=== PATIENT | male | born 1965 | race Hispanic/Latino ===

== ENCOUNTER → 2017-05-01 | Outpatient (CLI) | payer OTHER ==
[~2017-05-01] MED LIST: ALLOPURINOL300 MG PO; ALPRAZOLAM0.25 MG PO; AMBIEN10 MG PO; BENTYL10 MG PO; BUSPIRONE HCL5 MG PO; CARAFATE1 GM/10 ML PO; CELEBREX PO; CYMBALTA30 MG PO; DEXILANT60 MG PO; FOLIC ACID1 MG PO; HYDROCODONE PO; LAMISIL250 MG PO; LASIX20 MG PO; LEVEMIR100 UNIT/1 SC; LOSARTAN POTASS25 MG PO; LYRICA50 MG PO; PERIOSTAT PO; SORIATANE25 MG PO; SUCRALFATE1 GM PO; TRIAMCINOLONE; [UNRECOGNIZED DRUG - CODE]
--- NOTE | 2017-05-01 22:41 | Diagnostic Imaging Report ---
EXAM: CHEST 2 VIEWS, PA and lateral INDICATION: Positive skin test COMPARISON: PA and lateral view of the chest May 05, 2016 FINDINGS: LINES/TUBES: None LUNGS: No consolidations or edema. PLEURA: No effusions or pneumothorax. HEART AND MEDIASTINUM: Normal size and contour. BONES AND SOFT TISSUES: No acute findings. IMPRESSION: No acute thoracic abnormality. Signed by: Dr. Amairani Jefferson M.D. on 05/01/2017 10:37 PM
== END ==
LOC: RAD 16:44
PROVIDERS: ATTEND Student in an Organized Health Care Education/Training Program
DX: R76.11 Nonspecific reaction to tuberculin skin test without active tuberculosis (principal); L40.59 Other psoriatic arthropathy; Z79.899 Other long term (current) drug therapy
CPT/HCPCS: 71046

== ENCOUNTER → 2018-05-03 | Outpatient (CLI) | payer OTHER ==
--- NOTE | 2018-05-03 16:53 | Diagnostic Imaging Report ---
EXAMINATION: PA and lateral views of the chest. COMPARISON: 05/01/2017 CLINICAL HISTORY: Positive PPD DISCUSSION: Lines/tubes: None. Lungs: The lungs are well inflated and clear. There is no evidence of pneumonia or pulmonary edema. Pleura: There is no pleural effusion or pneumothorax. Heart and mediastinum: The cardiomediastinal silhouette is normal. Bones and soft tissues: No acute bony abnormalities. Degenerative changes in the thoracic spine unchanged anterior compression deformity of an upper lumbar vertebral body relative to 05/01/2017. IMPRESSION: No acute cardiopulmonary abnormalities. Signed by: Dr. Karlos Reyes M.D. on 05/03/2018 4:49 PM
== END ==
LOC: RAD 16:00
PROVIDERS: ATTEND Internal Medicine Rheumatology
DX: R76.11 Nonspecific reaction to tuberculin skin test without active tuberculosis (principal); L40.59 Other psoriatic arthropathy; Z79.899 Other long term (current) drug therapy
CPT/HCPCS: 71046

== ENCOUNTER → 2019-07-11 | Outpatient (CLI) | payer OTHER ==
--- NOTE | 2019-07-11 09:58 | Diagnostic Imaging Report ---
EXAM: CHEST 2 VIEWS DATE: 07/11/2019 9:19 AM INDICATION: +PPD COMPARISON: 05/03/2018 FINDINGS: The trachea is midline. The lungs are symmetrically expanded without evidence for large focal consolidation, pneumothorax, or significant pleural effusion. The cardiomediastinal silhouette and pulmonary vasculature are within normal limits. No acute osseous abnormality is identified. The surrounding soft tissues are unremarkable. IMPRESSION: No acute cardiopulmonary process identified. Signed by: Dr. Logan Haile MD on 07/11/2019 9:54 AM
== END ==
LOC: RAD 09:12
PROVIDERS: ATTEND Internal Medicine Rheumatology
DX: R76.11 Nonspecific reaction to tuberculin skin test without active tuberculosis (principal); L40.59 Other psoriatic arthropathy
CPT/HCPCS: 71046

== ENCOUNTER → 2020-07-12 | Outpatient (CLI) | payer BC | LOC: RAD 12:55 | PROVIDERS: ATTEND Internal Medicine Rheumatology | DX: Z79.899 Other long term (current) drug therapy (principal); Z11.1 Encounter for screening for respiratory tuberculosis; D89.9 Disorder involving the immune mechanism, unspecified; R76.11 Nonspecific reaction to tuberculin skin test without active tuberculosis | CPT/HCPCS: 71046 ==

== ENCOUNTER 2024-01-30 09:20 | Emergency (ER) | payer SELFPAY ==
[~2024-01-30] VITALS: Ht 165.1 cm; Wt 127.0 kg
[2024-01-30] MEDS: TETANUS/DIPHTHERIA TOX ADULT 0.5 ML SYR IM ONE (09:48)
[2024-01-30] MEDS: LIDOCAINE HCL 1% LOCAL INJ 20 ML VIAL INJ ONE (09:49)
[2024-01-30] MEDS ORDERED: BACITRACIN ZINC 0.9GM TP ONE (10:16)
[2024-01-30] MEDS ORDERED: CIPRO500 MG PO (10:19)
[2024-01-30 10:31] VITALS: PULSE 74; RESP 16; TEMP 98.4; O2SAT 98
== END 2024-01-30 10:35 | disposition home or self-care (01) ==
LOC: ER 09:32
DX: S01.311A Laceration without foreign body of right ear, initial encounter (principal); W22.09XA Striking against other stationary object, initial encounter; Y92.89 Other specified places as the place of occurrence of the external cause; M06.9 Rheumatoid arthritis, unspecified; L40.9 Psoriasis, unspecified
CPT/HCPCS: 12013; 90471; 90714; 99283; J2003

== ENCOUNTER 2024-03-23 13:36 | Emergency (ER) | payer SELFPAY ==
[~2024-03-23] VITALS: Ht 165.1 cm; Wt 127.0 kg
[~2024-03-23 13:36] MED LIST changes: +CIPRO500 MG PO
[2024-03-23 14:51] VITALS: PULSE 92; RESP 18; TEMP 98.9; O2SAT 97
[2024-03-23] MEDS ORDERED: IBUPROFEN 600 MG TAB ONE (15:04)
[2024-03-23] MEDS: IBUPROFEN 600 MG TAB PO STA (15:07)
== END 2024-03-23 16:38 | disposition home or self-care (01) ==
LOC: ER 14:49
DX: M25.512 Pain in left shoulder (principal); L40.9 Psoriasis, unspecified; M06.9 Rheumatoid arthritis, unspecified
CPT/HCPCS: 99283

== ENCOUNTER 2024-04-12 11:02 | Inpatient (IN) | payer SELFPAY ==
[~2024-04-12] VITALS: Ht 165.1 cm; Wt 81.8 kg
[2024-04-12 11:14] VITALS: TEMP 97.5
[2024-04-12] MEDS ORDERED: SODIUM CHLORIDE FLUSH 10 ML SYR IV PRN (11:30)
[2024-04-12 12:22] LABS: BASOPHILS # (AUTO) 0.1 (0.0-0.1); BASOPHILS % 0.3 % (0.0-1.0); EOSINOPHILS # (AUTO) 0.2 (0.0-0.4); HEMATOCRIT 32.5 % (38.2-49.6); HEMOGLOBIN 10.4 g/dL (14.0-18.0); LYMPHOCYTES # (AUTO) 0.8 (1.0-3.2); LYMPHOCYTES % 5.3 % (18.0-39.1); MEAN CORPUSCULAR HEMOGLOBIN 25.4 pg (28-32); MEAN CORPUSCULAR VOLUME 79.5 fL (81-99); MONOCYTES # (AUTO) 1.6 (0.2-0.8); MONOCYTES % 10.9 % (4.4-11.3); NEUTROPHILS # (AUTO) 11.7 (2.1-6.9); NEUTROPHILS % 81.5 % (38.7-80.0); PLATELET COUNT 130 x10e3/uL (140-360); RED BLOOD COUNT 4.09 x10e6/uL (4.3-5.7); WHITE BLOOD COUNT 14.35 x10e3/uL (4.8-10.8)
[2024-04-12 12:39] LABS: CORONAVIRUS COVID-19 AG NEGATIVE (NEGATIVE); INFLUENZA A AG NEGATIVE (NEGATIVE); INFLUENZA B AG NEGATIVE (NEGATIVE)
[2024-04-12 12:43] LABS: ALBUMIN 1.6 g/dL (3.5-5.0); ALBUMIN/GLOBULIN RATIO 0.3 (0.8-2.0); ANION GAP 17.3 mmol/L (8-16); BILIRUBIN,TOTAL 4.8 mg/dL (0.2-1.2); CREATININE, SERUM 1.02 mg/dL (0.72-1.25); POTASSIUM 4.3 mmol/L (3.5-5.1); TOTAL PROTEIN 6.7 g/dL (6.5-8.1)
[2024-04-12 12:49] LABS: TROPONIN I 0.008 ng/mL (0-0.300)
[2024-04-12] MEDS ORDERED: IOPAMIDOL 370 MG/ML 100 ML INFUS..BTL INJ ONE (13:27)
[2024-04-12] MEDS ORDERED: Vancomycin IV 1 GM in SODIUM CHLORIDE 0.9% 250ML 250 ML IV SCH (13:30)
[2024-04-12] MEDS ORDERED: Vancomycin IV 500 MG in SODIUM CHLORIDE 0.9% 100 ML IV SCH (13:30)
[2024-04-12] MEDS ORDERED: SODIUM CHLORIDE FLUSH 10 ML SYR INJ PRN (13:45)
[2024-04-12 14:18] LABS: INR 1.55; PROTHROMBIN TIME 19.4 seconds (11.9-14.5)
[2024-04-12 14:19] LABS: PARTIAL THROMBOPLASTIN TIME 46.2 seconds (23.8-35.5)
[2024-04-12] MEDS: MUPIROCIN 2% OINT 22 GM TUBE TOP SCH (14:20)
[2024-04-12] MEDS: CEFEPIME 2 GM in SODIUM CHLORIDE 0.9% 100 ML IV ONE (14:20)
[2024-04-12] MEDS ORDERED: LIDOCAINE HCL 1% 30ML-PF VIAL ONE (15:49)
[2024-04-12] MEDS: METRONIDAZOLE 500MG/NS 100ML 100 ML IV SCH (16:44)
[2024-04-12] MEDS: VANCOMYCIN 1.5 GM/300 ML (PEG) 300 ML IV SCH (17:46)
[2024-04-12 18:10] LABS: BODY FLUID TYPE PLEURAL
[2024-04-12 18:11] LABS: BODY FLUID COLOR YELLOW
[2024-04-12 18:12] LABS: BODY FLUID APPEARANCE CLOUDY; LYMPHOCYTES,BODY FLUID 28 %; MONO/MACROPHG,BODY FLUID 1 %; NEUTROPHILS,BODY FLUID 71 %; RBC,BODY FLUID 25000 cells/uL; TOTAL CELLS COUNTED (DIFF) 100; WBC,BODY FLUID 5536 cells/uL
[2024-04-12] MEDS ORDERED: DEXTROSE 50% SYRINGE 50 ML IV PRN (19:00)
[2024-04-12 19:30] VITALS: PULSE 110; RESP 24
[2024-04-12] MEDS: Morphine 2mg Syringe 2 MG/ML SYR IV PRN (20:15)
[2024-04-12] MEDS: INSULIN LISPRO 100 UNIT/1 ML 3ML VIAL SQ SCH (20:50)
[2024-04-12 21:00] VITALS: BP 114/71; PULSE 114; RESP 18; TEMP 98.2; O2SAT 93
[2024-04-12 21:05] VITALS: PULSE 106; RESP 20; O2SAT 93
[2024-04-12 22:30] VITALS: BP 114/71; PULSE 114; RESP 18; TEMP 98.2; O2SAT 93
[2024-04-12 23:22] VITALS: BP 135/66; PULSE 106; RESP 16; TEMP 98.4; O2SAT 96
[2024-04-13] VITALS (10 sets, daily range): BP systolic 116–139; BP diastolic 61–74; PULSE 97–106; RESP 16–20; TEMP 97.5–98.3; O2SAT 92–100
[2024-04-13] MEDS: VANCOMYCIN 1.5 GM/300 ML (PEG) 300 ML IV SCH (06:08)
[2024-04-13 07:09] LABS: BASOPHILS % 0.3 % (0.0-1.0); EOSINOPHILS # (AUTO) 0.1 (0.0-0.4); HEMATOCRIT 30.4 % (38.2-49.6); HEMOGLOBIN 9.6 g/dL (14.0-18.0); LYMPHOCYTES % 8.3 % (18.0-39.1); MEAN CORPUSCULAR HEMOGLOBIN 25.3 pg (28-32); MEAN CORPUSCULAR HGB CONC 31.6 g/dL (31-35); MEAN CORPUSCULAR VOLUME 80.2 fL (81-99); MONOCYTES # (AUTO) 1.6 (0.2-0.8); MONOCYTES % 12.7 % (4.4-11.3); NEUTROPHILS # (AUTO) 9.5 (2.1-6.9); NEUTROPHILS % 77.1 % (38.7-80.0); PLATELET COUNT 126 x10e3/uL (140-360); RED BLOOD COUNT 3.79 x10e6/uL (4.3-5.7); RED CELL DISTRIBUTION WIDTH 19.2 % (11.7-14.4); WHITE BLOOD COUNT 12.33 x10e3/uL (4.8-10.8)
[2024-04-13 07:40] LABS: ALBUMIN 1.4 g/dL (3.5-5.0); ALBUMIN/GLOBULIN RATIO 0.3 (0.8-2.0); ANION GAP 10.2 mmol/L (8-16); BILIRUBIN,TOTAL 3.6 mg/dL (0.2-1.2); CALCIUM 7.8 mg/dL (8.4-10.2); CREATININE, SERUM 0.75 mg/dL (0.72-1.25); POTASSIUM 4.2 mmol/L (3.5-5.1); TOTAL PROTEIN 5.7 g/dL (6.5-8.1)
[2024-04-13] MEDS ORDERED: NON-FORMULARY MEDICATION (Insulin Detemir (Levemir) 20 UNITS) SC SCH (09:00)
[2024-04-13] MEDS: DULOXETINE HCL 30 MG DELAYED RELEASE PO SCH (09:46)
[2024-04-13] MEDS: BUSPIRONE HCL 5 MG TAB PO SCH (09:46)
[2024-04-13] MEDS: LOSARTAN POTASSIUM 25 MG TAB PO SCH (09:46)
[2024-04-13] MEDS: ALLOPURINOL 300 MG TAB PO SCH (09:47)
[2024-04-13] MEDS: INSULIN GLARGINE 100 UNITS/ML VIAL SC SCH (09:48)
[2024-04-13 20:26] LABS: % IRON SATURATION 12 % (15-50); IRON 17 ug/dL (65-175); TOTAL IRON BINDING CAPACITY 137 ug/dL (261-478); TRANSFERRIN 98 mg/dL (174-364)
[2024-04-14] VITALS (8 sets, daily range): BP systolic 111–135; BP diastolic 58–71; PULSE 85–101; RESP 18–20; TEMP 97.9–98.4; O2SAT 94–98
[2024-04-14] MEDS: IRON SUCROSE 100 MG in SODIUM CHLORIDE 0.9% 100 ML IV SCH (09:07)
[2024-04-14 11:46] LABS: BASOPHILS % 0.3 % (0.0-1.0); EOSINOPHILS # (AUTO) 0.2 (0.0-0.4); EOSINOPHILS % 2.3 % (0.0-6.0); HEMOGLOBIN 9.7 g/dL (14.0-18.0); LYMPHOCYTES # (AUTO) 1.1 (1.0-3.2); LYMPHOCYTES % 11.2 % (18.0-39.1); MEAN CORPUSCULAR HEMOGLOBIN 24.9 pg (28-32); MEAN CORPUSCULAR HGB CONC 32.3 g/dL (31-35); MEAN CORPUSCULAR VOLUME 76.9 fL (81-99); MONOCYTES # (AUTO) 1.2 (0.2-0.8); MONOCYTES % 12.1 % (4.4-11.3); NEUTROPHILS % 73.6 % (38.7-80.0); PLATELET COUNT 122 x10e3/uL (140-360); RED CELL DISTRIBUTION WIDTH 19.7 % (11.7-14.4); WHITE BLOOD COUNT 9.53 x10e3/uL (4.8-10.8)
[2024-04-14 12:12] LABS: ALBUMIN 1.3 g/dL (3.5-5.0); ALBUMIN/GLOBULIN RATIO 0.3 (0.8-2.0); ANION GAP 10.7 mmol/L (8-16); BILIRUBIN,TOTAL 3.5 mg/dL (0.2-1.2); CALCIUM 7.8 mg/dL (8.4-10.2); CREATININE, SERUM 0.7 mg/dL (0.72-1.25); POTASSIUM 3.7 mmol/L (3.5-5.1); TOTAL PROTEIN 5.6 g/dL (6.5-8.1)
[2024-04-14 12:30] LABS: BILIRUBIN,DIRECT 2.5 mg/dL (0.0-0.5); BILIRUBIN,TOTAL 3.5 mg/dL (0.2-1.2)
[2024-04-14] MEDS: Vancomycin IV 1 GM in SODIUM CHLORIDE 0.9% 250ML 250 ML IV SCH (17:24)
[2024-04-14] MEDS: ZOLPIDEM TARTRATE 10 MG TAB PO PRN (21:20)
[2024-04-15] VITALS (8 sets, daily range): BP systolic 112–127; BP diastolic 59–68; PULSE 96–105; RESP 18–20; TEMP 98–98.8; O2SAT 95–99
[2024-04-15] MEDS: ONDANSETRON HCL INJ 2MG/ML 2ML 2 MG/ML VIAL IV PRN (08:35)
[2024-04-15] MEDS: SODIUM CHLORIDE 0.9% 250ML 250 ML ONE (09:07)
[2024-04-15] MEDS ORDERED: IOPAMIDOL 370 MG/ML 100 ML INFUS..BTL INJ ONE (10:48)
[2024-04-16] VITALS (7 sets, daily range): BP systolic 116–122; BP diastolic 60–76; PULSE 95–102; RESP 18–20; TEMP 97.4–99.6; O2SAT 97–99
[2024-04-16 06:29] LABS: BASOPHILS # (AUTO) 0.1 (0.0-0.1); BASOPHILS % 0.6 % (0.0-1.0); EOSINOPHILS # (AUTO) 0.3 (0.0-0.4); EOSINOPHILS % 3.3 % (0.0-6.0); HEMATOCRIT 30.9 % (38.2-49.6); HEMOGLOBIN 9.9 g/dL (14.0-18.0); LYMPHOCYTES # (AUTO) 1.1 (1.0-3.2); LYMPHOCYTES % 11.3 % (18.0-39.1); MEAN CORPUSCULAR HEMOGLOBIN 25.4 pg (28-32); MEAN CORPUSCULAR VOLUME 79.4 fL (81-99); MONOCYTES # (AUTO) 1.5 (0.2-0.8); MONOCYTES % 15.4 % (4.4-11.3); NEUTROPHILS # (AUTO) 6.7 (2.1-6.9); NEUTROPHILS % 68.9 % (38.7-80.0); PLATELET COUNT 120 x10e3/uL (140-360); RED BLOOD COUNT 3.89 x10e6/uL (4.3-5.7); RED CELL DISTRIBUTION WIDTH 19.9 % (11.7-14.4); WHITE BLOOD COUNT 9.74 x10e3/uL (4.8-10.8)
[2024-04-16 06:58] LABS: ALBUMIN 1.3 g/dL (3.5-5.0); ALBUMIN/GLOBULIN RATIO 0.3 (0.8-2.0); ANION GAP 10.7 mmol/L (8-16); BILIRUBIN,TOTAL 3.8 mg/dL (0.2-1.2); CALCIUM 7.7 mg/dL (8.4-10.2); CREATININE, SERUM 0.69 mg/dL (0.72-1.25); POTASSIUM 3.7 mmol/L (3.5-5.1); TOTAL PROTEIN 5.9 g/dL (6.5-8.1)
[2024-04-17 05:25] VITALS: BP 148/75; PULSE 84; RESP 20; TEMP 98.7; O2SAT 99
[2024-04-17 10:40] VITALS: BP 119/57; PULSE 87; RESP 20; TEMP 97.6; O2SAT 100
[2024-04-17 10:59] VITALS: BP 119/57; PULSE 87; RESP 20; TEMP 97.6; O2SAT 100
[2024-04-17 17:04] VITALS: BP 135/64; PULSE 93; RESP 20; TEMP 97.6; O2SAT 96
[2024-04-17 17:35] VITALS: BP 121/57; PULSE 95; RESP 18; TEMP 98.2; O2SAT 96
[2024-04-17 20:00] VITALS: BP 121/65; PULSE 96; RESP 18; TEMP 98.2; O2SAT 96
[2024-04-18] VITALS (7 sets, daily range): BP systolic 109–140; BP diastolic 60–71; PULSE 95–101; RESP 16–19; TEMP 97.4–98.9; O2SAT 96–100
[2024-04-18 06:19] LABS: ALBUMIN 1.3 g/dL (3.5-5.0); ALBUMIN/GLOBULIN RATIO 0.3 (0.8-2.0); ANION GAP 9.5 mmol/L (8-16); BILIRUBIN,TOTAL 4.4 mg/dL (0.2-1.2); CALCIUM 7.8 mg/dL (8.4-10.2); CREATININE, SERUM 0.64 mg/dL (0.72-1.25); POTASSIUM 3.5 mmol/L (3.5-5.1); TOTAL PROTEIN 5.9 g/dL (6.5-8.1)
[2024-04-18] MEDS ORDERED: IRON SUCROSE 0 ML IV ONE (10:36)
[2024-04-18] MEDS: ZOLPIDEM TARTRATE 5 MG TAB PO PRN (22:00)
[2024-04-19] VITALS: BP 115/56; PULSE 99; RESP 18; TEMP 98.1; O2SAT 95
[2024-04-19 05:43] VITALS: BP 132/79; PULSE 102; RESP 20; TEMP 98.1; O2SAT 93
[2024-04-19 07:26] LABS: HEPATITIS B CORE IGM (P) Negative; HEPATITIS B SURFACE AG (P) Negative
[2024-04-19 07:27] LABS: HEPATITIS A ANTIBODY IGM (P) Negative; HEPATITIS C ANTIBODY Non Reactive
[2024-04-19 07:28] LABS: ALPHA FETO-PROTEIN 36.6
[2024-04-19 08:38] VITALS: BP 119/48; PULSE 105; TEMP 98; O2SAT 98
[2024-04-19 11:44] VITALS: BP 135/69; PULSE 106; TEMP 97.9; O2SAT 96
[2024-04-19 16:48] VITALS: BP 139/71; PULSE 106; TEMP 98.2; O2SAT 99
[2024-04-19 20:00] VITALS: BP 126/69; PULSE 106; RESP 18; TEMP 97.7; O2SAT 95
[2024-04-19] MEDS: Morphine 2mg Syringe 2 MG/ML SYR IV PRN (22:48)
[2024-04-20] VITALS (9 sets, daily range): BP systolic 104–129; BP diastolic 54–65; PULSE 92–104; RESP 18–20; TEMP 97.3–98.5; O2SAT 20–100
[2024-04-20 06:06] LABS: ANION GAP 9.7 mmol/L (8-16); CALCIUM 8.4 mg/dL (8.4-10.2); CREATININE, SERUM 0.65 mg/dL (0.72-1.25); POTASSIUM 3.7 mmol/L (3.5-5.1)
[2024-04-20] MEDS: SODIUM CHLORIDE 1 GM TAB PO SCH (09:34)
[2024-04-20] MEDS ORDERED: PHYTONADIONE 10 MG/ML AMP IV ONE (22:00)
[2024-04-20] MEDS: PHYTONADIONE 10MG/ML INJ 20 MG in SODIUM CHLORIDE 0.9% 100 ML IV ONE (22:07)
[2024-04-21 03:25] VITALS: BP 115/72; PULSE 85; RESP 18; TEMP 98.1; O2SAT 100
[2024-04-21 05:48] LABS: BASOPHILS % 0.4 % (0.0-1.0); EOSINOPHILS # (AUTO) 0.1 (0.0-0.4); EOSINOPHILS % 1.4 % (0.0-6.0); HEMATOCRIT 27.9 % (38.2-49.6); HEMOGLOBIN 8.9 g/dL (14.0-18.0); LYMPHOCYTES # (AUTO) 1.2 (1.0-3.2); LYMPHOCYTES % 13.6 % (18.0-39.1); MEAN CORPUSCULAR HEMOGLOBIN 25.6 pg (28-32); MEAN CORPUSCULAR HGB CONC 31.9 g/dL (31-35); MEAN CORPUSCULAR VOLUME 80.4 fL (81-99); MONOCYTES # (AUTO) 1.5 (0.2-0.8); NEUTROPHILS # (AUTO) 6.2 (2.1-6.9); NEUTROPHILS % 67.8 % (38.7-80.0); PLATELET COUNT 149 x10e3/uL (140-360); RED BLOOD COUNT 3.47 x10e6/uL (4.3-5.7); RED CELL DISTRIBUTION WIDTH 22.3 % (11.7-14.4); WHITE BLOOD COUNT 9.14 x10e3/uL (4.8-10.8)
[2024-04-21 06:13] LABS: INR 1.57; PROTHROMBIN TIME 19.6 seconds (11.9-14.5)
[2024-04-21 06:26] LABS: ANION GAP 11.8 mmol/L (8-16); CALCIUM 8.5 mg/dL (8.4-10.2); CREATININE, SERUM 0.67 mg/dL (0.72-1.25); POTASSIUM 3.8 mmol/L (3.5-5.1)
[2024-04-21] MEDS: SODIUM CHLORIDE 0.9% 250ML 250 ML ONE (07:20)
[2024-04-21 08:00] VITALS: BP 111/65; PULSE 89; RESP 18; TEMP 97.6; O2SAT 100
[2024-04-21 09:55] VITALS: BP 111/65; PULSE 89; RESP 18; TEMP 97.6; O2SAT 100
[2024-04-21 12:00] VITALS: BP 113/62; PULSE 91; RESP 20; TEMP 97.6; O2SAT 98
[2024-04-21 17:37] VITALS: BP 128/66; PULSE 90; RESP 20; TEMP 97.8; O2SAT 97
[2024-04-21 20:00] VITALS: BP 120/62; PULSE 93; RESP 20; TEMP 97.7; O2SAT 99
[2024-04-22 05:57] LABS: BASOPHILS # (AUTO) 0.1 (0.0-0.1); BASOPHILS % 0.4 % (0.0-1.0); EOSINOPHILS # (AUTO) 0.1 (0.0-0.4); EOSINOPHILS % 1.1 % (0.0-6.0); HEMATOCRIT 29.6 % (38.2-49.6); HEMOGLOBIN 9.5 g/dL (14.0-18.0); LYMPHOCYTES # (AUTO) 1.1 (1.0-3.2); LYMPHOCYTES % 10.2 % (18.0-39.1); MEAN CORPUSCULAR HEMOGLOBIN 26.1 pg (28-32); MEAN CORPUSCULAR HGB CONC 32.1 g/dL (31-35); MEAN CORPUSCULAR VOLUME 81.3 fL (81-99); MONOCYTES # (AUTO) 1.4 (0.2-0.8); MONOCYTES % 12.5 % (4.4-11.3); NEUTROPHILS # (AUTO) 8.3 (2.1-6.9); NEUTROPHILS % 74.9 % (38.7-80.0); PLATELET COUNT 162 x10e3/uL (140-360); RED BLOOD COUNT 3.64 x10e6/uL (4.3-5.7); RED CELL DISTRIBUTION WIDTH 22.8 % (11.7-14.4); WHITE BLOOD COUNT 11.14 x10e3/uL (4.8-10.8)
[2024-04-22 07:34] VITALS: BP 122/60; PULSE 92; RESP 18; TEMP 98.2; O2SAT 97
[2024-04-22 11:34] VITALS: BP 130/67; PULSE 98; RESP 18; TEMP 98; O2SAT 94
[2024-04-22 15:42] VITALS: BP 158/86; PULSE 101; RESP 18; TEMP 98.2; O2SAT 96
[2024-04-22 20:00] VITALS: BP 136/70; PULSE 102; RESP 18; TEMP 98.3; O2SAT 97
[2024-04-22 20:11] LABS: CLARITY,URINE CLOUDY (CLEAR); COLOR,URINE AMBER (YELLOW)
[2024-04-22 20:12] LABS: BILIRUBIN,URINE 3+ (NEGATIVE); GLUCOSE, URINE 1+ (NEGATIVE); KETONES,URINE NEGATIVE (NEGATIVE); LEUKOCYTE ESTERASE ,URINE NEGATIVE (NEGATIVE); NITRITE,URINE NEGATIVE (NEGATIVE); PH,URINE 6 (5 - 7); PROTEIN,URINE DIPSTICK 2+ (NEGATIVE); URINE UROBILINOGEN >=8 mg/dL (0.2 - 1)
[2024-04-22 20:28] LABS: AMORPHOUS SEDIMENT,URINE FEW; BACTERIA,URINE MANY /HPF; CALCIUM OXALATE CRYSTALS,UR FEW (FEW); EPITHELIAL CELLS,URINE FEW /LPF; RBC,URINE >50 /HPF (0-5); RENAL EPITHELIAL CELLS,URINE FEW; TRANSITIONAL EPI CELLS,URINE MODERATE
[2024-04-22 20:29] LABS: YEAST,URINE MANY
[2024-04-22] MEDS ORDERED: IOPAMIDOL 370 MG/ML 100 ML INFUS..BTL INJ ONE (23:02)
[2024-04-23] VITALS: BP 125/69; PULSE 96; RESP 18; TEMP 98.1; O2SAT 97
[2024-04-23 04:00] VITALS: BP 127/68; PULSE 92; RESP 18; TEMP 97.7; O2SAT 97
[2024-04-23 08:33] VITALS: BP 126/68; PULSE 97; RESP 20; TEMP 97.5; O2SAT 96
[2024-04-23 12:48] VITALS: BP 122/66; PULSE 97; RESP 18; TEMP 97.8; O2SAT 96
[2024-04-23 16:14] VITALS: BP 147/70; PULSE 95; RESP 20; TEMP 97.8; O2SAT 97
[2024-04-23 21:13] LABS: ALPHA-1-ANTITRYPSIN 214 mg/dL (101-187); ANTI-MITOCHONDRIAL AB SCREEN <20.0 Units (0.0-20.0); SMOOTH MUSCLE ANTIBODY(ACTIN) 9 Units (0-19)
== END 2024-04-23 16:20 | disposition home or self-care (01) | DRG 194 ==
LOC: ER 11:45 → ERHOLD 13:33 → IMCU 21:09 → MED/SURG2 04-14 12:25
PROVIDERS: ADMIT Family Medicine; ATTEND Family Medicine
PROC: 0W9930Z Drainage of Right Pleural Cavity with Drainage Device, Percutaneous Approach (ICD-10-PCS; principal; 2024-04-12)
PROC: 5A0935A Assistance with Respiratory Ventilation, Less than 24 Consecutive Hours, High Flow/Velocity Cannula (ICD-10-PCS; 2024-04-12)
DX: J18.9 Pneumonia, unspecified organism (principal); E87.1 Hypo-osmolality and hyponatremia; J91.8 Pleural effusion in other conditions classified elsewhere; J98.11 Atelectasis; R78.81 Bacteremia; K76.6 Portal hypertension; M48.54XA Collapsed vertebra, not elsewhere classified, thoracic region, initial encounter for fracture; K74.60 Unspecified cirrhosis of liver; B95.7 Other staphylococcus as the cause of diseases classified elsewhere; I10 Essential (primary) hypertension; E78.5 Hyperlipidemia, unspecified; E11.9 Type 2 diabetes mellitus without complications; Z79.4 Long term (current) use of insulin; Z79.84 Long term (current) use of oral hypoglycemic drugs; M06.9 Rheumatoid arthritis, unspecified; G89.4 Chronic pain syndrome; L40.9 Psoriasis, unspecified; R00.0 Tachycardia, unspecified; K76.9 Liver disease, unspecified; D50.9 Iron deficiency anemia, unspecified; D49.0 Neoplasm of unspecified behavior of digestive system; K80.20 Calculus of gallbladder without cholecystitis without obstruction; N20.0 Calculus of kidney; R16.1 Splenomegaly, not elsewhere classified; E66.01 Morbid (severe) obesity due to excess calories; Z68.30 Body mass index [BMI] 30.0-30.9, adult; Z71.3 Dietary counseling and surveillance; R53.81 Other malaise; G47.00 Insomnia, unspecified; M10.9 Gout, unspecified; M53.84 Other specified dorsopathies, thoracic region; I87.2 Venous insufficiency (chronic) (peripheral); F32.A Depression, unspecified; F41.9 Anxiety disorder, unspecified; Z11.52 Encounter for screening for COVID-19; Z71.81 Spiritual or religious counseling; Z59.71 Insufficient health insurance coverage; Z87.440 Personal history of urinary (tract) infections; Z79.899 Other long term (current) drug therapy
CPT/HCPCS: 32557; 36415; 71045; 71250; 71260; 74019; 74170; 74177; 74470; 76705; 76942; 80048; 80053; 80202; 81001; 82103; 82105; 82140; 82248; 82390; 82607; 82948; 83540; 83615; 83880; 84155; 84466; 84484; 85025; 85045; 85610; 85730; 86039; 86255; 87040; 87070; 87071; 87205; 89051; 93005; 94760; 94799; 99252; 99285; J0692; J1756; J1815; J2003; J2270; J2405; J2543; J3430; J7050; Q9967